=== PATIENT | female | born 1955 | race Caucasian/White ===

== ENCOUNTER → 2017-09-22 | Outpatient (CLI) | payer OTHER ==
[~2017-09-22] MED LIST: AMYL1CAP PO; CYCL-277 PO; CYCL-343 PO; DES100PT PO; EST3 PO; HYDR-3503 PO; KET10 PO; L-THYROXINE; LEVO-3 PO; MAX75 PO; METXR500 PO; NAPR500T75 PO; PHEN118S56 PO; TIZ4 PO; [UNRECOGNIZED DRUG - CODE] PO; [UNRECOGNIZED DRUG - OTHER]
--- NOTE | 2017-09-22 14:48 | RADIOLOGY IMAGING REPORT ---
FACILITY: [facility] PATIENT NAME: BEULAH SERRA : [id number] MR: [id number] V: [id number] EXAM DATE: ORDERING PHYSICIAN: PARAG BYRNE TECHNOLOGIST: Jenny Motta PROCEDURE:BILATERAL DIGITAL SCREENING MAMMOGRAM WITH CAD ASSISTED INTERPRETATION & 3D TOMOSYNTHESIS COMPARISON:Prior mammograms 12/07/15, 03/29/14, 12/24/11, 07/09/11, 12/13/10. INDICATIONS:screening FINDINGS: Moderately heterogeneous fibroglandular tissue is seen throughout the breasts. The parenchymal pattern has remained stable allowing for difference in mammographic technique & patient positioning. There is no evidence of malignant appearing mass, malignant appearing calcifications or other secondary sign of malignancy in either breast. DIAGNOSTIC CATEGORY 1--NEGATIVE. RECOMMENDATIONS: ROUTINE MAMMOGRAM AND CLINICAL EVALUATION. IMPRESSION: BIRADS 1: Negative. No significant abnormality is seen. Dictated by: Krista Ribera M.D. on 09/22/2017 at 14:39 Transcribed by: [place] on 09/22/2017 at 14:44 Approved by: Krista Ribera M.D. on 09/22/2017 at 14:46 [facility]
== END ==
LOC: MAMO 08-14 02:28
PROVIDERS: ATTEND Family Medicine
DX: Z12.31 Encounter for screening mammogram for malignant neoplasm of breast (principal)
CPT/HCPCS: 77063; 77067